=== PATIENT | male | born 1950 ===

== ENCOUNTER 2019-02-17 16:14 | Emergency (ER) | payer MEDICARE, OTHER ==
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
--- NOTE | 2019-02-17 17:21 | CR ---
INDICATION: LEFT HIP INJURY TODAY. PAIN. COMPARISON: 02/16/2019. FINDINGS: AP view of the hips and pelvis and AP and frog-leg views of the left hip redemonstrate normal mineralization and alignment. There is no evidence of acute fracture or dislocation. There are moderate degenerative changes of the left hip joint. Benign-appearing cortical thickening of the proximal femur. Pubic symphysis and sacroiliac joints are intact. Soft tissues are unremarkable. IMPRESSION: 1. No acute osseous abnormality. 2. 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 Dictated by James Vitale MD @ 02/17/2019 5:19:56 PM Dictated by: James Vitale MD @ 02/17/2019 17:20:03 (Electronically Signed)
== END 2019-02-17 17:43 | disposition home or self-care (01) ==
LOC: MW.ED 16:14
DX: M25.552 Pain in left hip (principal); Z79.82 Long term (current) use of aspirin; Z79.84 Long term (current) use of oral hypoglycemic drugs
CPT/HCPCS: 73502-26-LT; 73502-LT; 99283; 99283-25